=== PATIENT | male | born 1950 | race Caucasian/White ===

== ENCOUNTER 2019-10-20 10:29 | Emergency (ER) | payer SELFPAY ==
[~2019-10-20] VITALS: Ht 165.1 cm; Wt 38.6 kg
[2019-10-20 10:30] VITALS: BP_SYST 108
[2019-10-20] MEDS ORDERED: EPINEPHrine JECT 0.1 MG/ML SYR IVP ONE (10:30)
[2019-10-20] MEDS ORDERED: NS 1000 ML IV.SOLN IV ONE (10:30)
[2019-10-20] MEDS ORDERED: CALCIUM CHLORIDE 1 GM/10 ML DISP.SYRIN (14 mEq Ca++/SYR) IVP ONE (10:30)
[2019-10-20] MEDS ORDERED: ATROPINE SULFATE 1 MG/10 ML SYRINGE IVP ONE (10:30)
[2019-10-20] MEDS ORDERED: ROCURONIUM BROMIDE 10 MG/ML (ZEMURON) IV ONE (10:30)
--- NOTE | 2019-10-20 10:30 | NUR ---
Patient to ER bed 1 to gown for evaluation. Side rails up.
--- NOTE | 2019-10-20 10:30 | NUR ---
PT ARRIVED IN RESP ARREST WITH ASSISTED VENTILATIONS. HR 33, PT IS NON-RESPONSIVE WITH DILATED PUPILS. ALL STAFF AT BEDSIDE, DR ESTRADA AT BEDSIDE. TRIAGED FROM MEDICS.
--- NOTE | 2019-10-20 10:30 | NUR ---
Pt brought from [facility], pulled from dry river bed presents with agonal respriations, hypotension, bradycardia, AMS. CPR and ACLS protocol initiated.
--- NOTE | 2019-10-20 10:35 | NUR ---
IO placed to L knee. Use of asceptic technique. Blood return noted. Blood for lab drawn from site. Flushed with 10 cc of normal saline. No evidence of infiltration noted. Patient tolerated well.
--- NOTE | 2019-10-20 10:36 | NUR ---
Patient not known to be of DNR status. Patient medicated with 70 mg of Rocuronium for sedation prior to placement of ET tube. Respiratory therapy at bedside prior to placement. Size 7.5 ET tube placed by Dr Álvarez. Cuff inflated with air. Auscultation of breath sounds over bilateral chest wall. ET tube secured. PCXR ordered to check tube placement.
[2019-10-20 10:52] VITALS: BP_SYST 108
--- NOTE | 2019-10-20 10:52 | NUR ---
Dr Álvarez end code, called time of ,
--- NOTE | 2019-10-20 10:52 | NUR ---
Note stephanieone in EDM - 10/20/19 at 1859 by ALAN Patient not known to be of DNR status. Patient medicated with 70 mg of Rocuronium for sedation prior to placement of ET tube. Respiratory therapy at bedside prior to placement. Size 7.5 ET tube placed by Dr Álvarez. Cuff inflated with air. Auscultation of breath sounds over bilateral chest wall. ET tube secured. PCXR ordered to check tube placement.
--- NOTE | 2019-10-20 10:52 | NUR ---
Patient decseased, time of called by Dr Álvarez at 1052. [employer], [employer] to be notified regarding pt case.
--- NOTE | 2019-10-20 12:00 | NUR ---
[facility] stated pt was not candidate,
--- NOTE | 2019-10-20 12:00 | NUR ---
[facility] ([facility])
--- NOTE | 2019-10-20 12:45 | NUR ---
CALLS PLACED TO [facility], [facility], AND [facility], ALL STATES THAT PT WAS NOT IN THEIR JURISDICTION. WILL ATTEMPT TO CALL [facility] AND FIND OUT MORE INFORMATION
--- NOTE | 2019-10-20 12:53 | NUR ---
Postmortem care done. Pt had large coffee ground emesis cleansed. Clean chux placed. Body intact, no obvious deformity, abrasions or skin tears noted. Placed in body bag awaiting to be placed in body hold. ETT in place, IO to LLE in place. LEJ in place. Cardiac pads in place. Pt has ring to left index finger. White dirty tank top was cut off during code and thrown away with soiled linen.
--- NOTE | 2019-10-20 14:22 | NUR ---
RECEIVED CALL BACK FROM [facility] AND PT WAS PICKED UP IN [place] [id number] [place]. CALL PLACED TO [place] [employer] AND THEY WILL CALL ME BACK.
--- NOTE | 2019-10-20 15:02 | NUR ---
SPOKE WITH OFFICER BETTYE FROM [facility]. EXPLAINED SITUATION TO OFFICER.
--- NOTE | 2019-10-20 15:44 | NUR ---
SPOKE WITH OFFICER LAUREL REPORT TAKEN.
== END 2019-10-20 10:52 | disposition expired ==
LOC: SED 10:29
DX: I46.9 Cardiac arrest, cause unspecified (principal); R64 Cachexia; K92.1 Melena
CPT/HCPCS: 31500; 36680; 76705; 92950; 99285; J0171; J0461; J7030